=== PATIENT | female | born 1965 | race African-American/Black ===

== ENCOUNTER 2016-09-22 03:36 | Emergency (ER) | payer SELFPAY ==
[~2016-09-22] VITALS: Ht 160 cm; Wt 59.0 kg
[2016-09-22] MEDS ORDERED: SODIUM CHLORIDE 0.9% 1,000 ML IV ONE (04:16)
[2016-09-22] MEDS ORDERED: MORPHINE SULFATE 4 MG/ML CPJ (NOT FOR IM USE) IV STA (04:16)
[2016-09-22] MEDS ORDERED: ONDANSETRON HCL 4MG/2ML VIAL IV STA (04:16)
[2016-09-22 04:35] LABS: BASOPHILS % 0.5 % (0.0-2.0); DIFFERENTIAL COMMENT 0; EOSINOPHILS % 1.8 % (0.0-5.0); HEMATOCRIT. 35.1 % (36.0-48.0); HEMOGLOBIN. 11.2 g/dL (12.0-16.0); LYMPHOCYTES % 30.1 % (20.0-50.0); MEAN CORPUSCULAR HGB CONC 31.9 g/dL (31.0-37.0); MEAN CORPUSCULAR VOLUME 75.1 fL (81.0-99.0); MONOCYTES % 5.5 % (2.0-8.0); NEUTROPHILS % 62.1 % (40.0-76.0); PLATELET 220 x1000/uL (130-400); RED BLOOD CELL COUNT 4.67 mill/uL (4.2-5.4); RED CELL DISTRIBUTION WIDTH 12.6 % (11.6-14.6); WHITE BLOOD COUNT 8.5 x1000/uL (4.5-11.0)
[2016-09-22 04:45] LABS: ALANINE AMINOTRANSFERASE 30 IU/L (13-61); ALBUMIN 2.6 g/dL (3.4-5.0); ANION GAP 14; CALCIUM 8.7 mg/dL (8.5-10.1); CARBON DIOXIDE 27 mEq/L (21-32); CHLORIDE 98 mEq/L (98-107); CREATINE KINASE 216 IU/L (26-192); INDEX ICTERIC 1 (1-4); INDEX LIPEMIC 1 (1-3); UREA NITROGEN BLOOD 9 mg/dL (7-21); eGFR > 60 mL/min (>60)
[2016-09-22 04:46] LABS: INDEX HEMOLYSI 4 (1-3)
[2016-09-22 06:30] VITALS: BP 151/74
== END 2016-09-22 07:00 | disposition home or self-care (01) ==
LOC: ER 03:38
DX: G57.83 Other specified mononeuropathies of bilateral lower limbs (principal); K21.9 Gastro-esophageal reflux disease without esophagitis; I10 Essential (primary) hypertension; E78.00 Pure hypercholesterolemia, unspecified; E11.9 Type 2 diabetes mellitus without complications; M54.9 Dorsalgia, unspecified; Z79.4 Long term (current) use of insulin; Z88.6 Allergy status to analgesic agent
CPT/HCPCS: 36415; 80053; 82550; 85025; 96374; 96375; 99284; J2270; J2405; J7030; Z7610

== ENCOUNTER 2016-10-20 13:29 | Emergency (ER) | payer MEDICAID ==
[~2016-10-20] VITALS: Ht 160 cm; Wt 67.0 kg
[2016-10-20] MEDS ORDERED: SODIUM CHLORIDE 0.9% 1,000 ML IV ONE (14:16)
[2016-10-20 14:31] LABS: BASOPHILS % 0.4 % (0.0-2.0); DIFFERENTIAL COMMENT 0; EOSINOPHILS % 3.5 % (0.0-5.0); HEMATOCRIT. 29.5 % (36.0-48.0); HEMOGLOBIN. 9.5 g/dL (12.0-16.0); LYMPHOCYTES % 29.3 % (20.0-50.0); MEAN CORPUSCULAR HEMOGLOBIN 24.4 pg (28.0-32.0); MEAN CORPUSCULAR VOLUME 76.2 fL (81.0-99.0); MEAN PLATELET VOLUME 7.3 fl (7.4-10.4); MONOCYTES % 8.6 % (2.0-8.0); NEUTROPHILS % 58.2 % (40.0-76.0); PLATELET 324 x1000/uL (130-400); RED BLOOD CELL COUNT 3.87 mill/uL (4.2-5.4); RED CELL DISTRIBUTION WIDTH 13.4 % (11.6-14.6); WHITE BLOOD COUNT 5.9 x1000/uL (4.5-11.0)
[2016-10-20 14:39] LABS: PROTHROMBIN TIME 10.3 sec
[2016-10-20 14:41] LABS: ALBUMIN 2.4 g/dL (3.4-5.0); ANION GAP 14; CALCIUM 8.2 mg/dL (8.5-10.1); CARBON DIOXIDE 27 mEq/L (21-32); CHLORIDE 100 mEq/L (98-107); HCG SCREEN NEGATIVE; INDEX HEMOLYSI 1 (1-3); INDEX ICTERIC 1 (1-4); INDEX LIPEMIC 1 (1-3); UREA NITROGEN BLOOD 33 mg/dL (7-21)
[2016-10-20 14:45] LABS: ALANINE AMINOTRANSFERASE 19 IU/L (13-61); ETHANOL BLOOD < 10 mg/dL; eGFR 52 mL/min (>60)
[2016-10-20 14:48] LABS: CREATINE KINASE 174 IU/L (26-192); NT PRO B-TYPE NATRIURETIC PEP 80 pg/mL (5-125); TROPONIN I < 0.02 ng/mL (0.00-0.04)
[2016-10-20 14:49] LABS: LACTIC ACID 2.7 mmol/L (0.4-2.0)
[2016-10-20] MEDS ORDERED: KETOROLAC 15MG/ML VIAL IV ONE (15:15)
[2016-10-20] MEDS ORDERED: ONDANSETRON HCL 4MG/2ML VIAL IV ONE (15:15)
[2016-10-20 15:30] LABS: CLARITY URINE CLEAR (CLEAR); COLOR URINE YELLOW (YELLOW); GLUCOSE URINE NEGATIVE (NEGATIVE); KETONES URINE TRACE (NEGATIVE); LEUKOCYTE ESTERASE URINE NEGATIVE (NEGATIVE); NITRITE URINE NEGATIVE (NEGATIVE); OCCULT BLOOD URINE NEGATIVE (NEGATIVE); PROTEIN URINE 2+ (NEGATIVE); UROBILINOGEN URINE 0.2 E.U./dL (0.2-1.0)
[2016-10-20 15:44] LABS: *AMPHETAMINES SCREEN URINE NEGATIVE (NEGATIVE); *BARBITURATES SCREEN URINE NEGATIVE (NEGATIVE); *BENZODIAZEPINES SCREEN URINE NEGATIVE (NEGATIVE); *COCAINE SCREEN URINE NEGATIVE (NEGATIVE); CANNABINOID URINE SCREEN NEGATIVE (NEGATIVE); ECSTASY MDMA SCREEN URINE NEGATIVE (NEGATIVE); METHADONE URINE SCREEN NEGATIVE (NEGATIVE); OPIATES URINE SCREEN NEGATIVE (NEGATIVE); PHENCYCLIDINE URINE SCREEN NEGATIVE (NEGATIVE)
[2016-10-20 16:11] LABS: BACTERIA URINE 3+; RBC URINE 0-2 /hpf (0-2); SQUAMOUS EPITHELIAL CELL URINE 2+ /lpf (RARE/1+); WBC URINE 0-2 /hpf (0-2)
[2016-10-20 17:49] VITALS: BP 138/72
== END 2016-10-20 19:16 | disposition home or self-care (01) ==
LOC: ER 13:48
DX: E86.0 Dehydration (principal); R51 Headache; G62.9 Polyneuropathy, unspecified; I10 Essential (primary) hypertension; E11.9 Type 2 diabetes mellitus without complications; R42 Dizziness and giddiness; Z88.5 Allergy status to narcotic agent
CPT/HCPCS: 36415; 71010; 80053; 80305; 81001; 82550; 83605; 83880; 84443; 84484; 84703; 85025; 85610; 93005; 96361; 96374; 96375; 99285; G0482; J1885; J2405; J7030

== ENCOUNTER 2020-02-23 21:44 | Inpatient (IN) | payer MEDICAID, OTHER ==
[~2020-02-23] VITALS: Ht 160 cm; Wt 72.6 kg
[~2020-02-23 21:44] MED LIST: METF-416 PO
[2020-02-23 23:05] LABS: BASOPHILS % 0.5 % (0.0-2.0); EOSINOPHILS % 2.4 % (0.0-5.0); HEMATOCRIT. 32.1 % (36.0-48.0); HEMOGLOBIN. 10.2 g/dL (12.0-16.0); LYMPHOCYTES % 29.4 % (20.0-50.0); MEAN CORPUSCULAR HEMOGLOBIN 24.5 pg (28.0-32.0); MEAN CORPUSCULAR VOLUME 77.1 fL (81.0-99.0); MEAN PLATELET VOLUME 7.1 fl (7.4-10.4); MONOCYTES % 6.1 % (2.0-8.0); NEUTROPHILS % 61.6 % (40.0-76.0); PLATELET 348 x1000/uL (130-400); RED BLOOD CELL COUNT 4.16 mill/uL (4.2-5.4); RED CELL DISTRIBUTION WIDTH 17.5 % (11.6-14.6)
[2020-02-23 23:12] LABS: CHLORIDE 103 mEq/L (98-107)
[2020-02-23] MEDS ORDERED: ALBUTEROL (0.083%) 2.5MG/3ML NEB HHN STA (23:34)
[2020-02-23] MEDS ORDERED: SODIUM BICARBONATE 8.4% 1 MEQ/ML 50ML SYR IV ONE (23:45)
[2020-02-23] MEDS ORDERED: ASPIRIN 81MG TABLET PO ONE (23:45)
[2020-02-23] MEDS ORDERED: FUROSEMIDE 40MG/4ML VIAL IV ONE (23:45)
[2020-02-23] MEDS ORDERED: CALCIUM GLUCONATE 1,000 MG in DEXT 5% WATER 100 ML IV ONE (23:45)
[2020-02-23] MEDS ORDERED: INSULIN REGULAR (HUMULIN R) 300UNITS/3ML IV ONE (23:45)
[2020-02-23] MEDS ORDERED: DEXTROSE 50% WATER 50ML SYRINGE IV ONE (23:45)
[2020-02-24] MEDS ORDERED: AMLODIPINE 10MG TABLET PO ONE (01:00)
[2020-02-24 04:15] VITALS: BP 175/78
[2020-02-24] MEDS ORDERED: GLIP5TAB12 MT (05:27)
[2020-02-24] MEDS ORDERED: HYDR-4133 MT (05:27)
[2020-02-24] MEDS ORDERED: METO-396 MT (05:27)
[2020-02-24] MEDS ORDERED: EPOE200014 SQ (05:27)
[2020-02-24] MEDS ORDERED: DEXTROSE 50% WATER 50ML SYRINGE IV PRN (05:45)
[2020-02-24] MEDS ORDERED: CLONIDINE 0.1MG TABLET PO PRN (05:45)
[2020-02-24] MEDS: HYDRALAZINE HCL 50MG TABLET PO SCH ×2 (06:08→13:00)
[2020-02-24] MEDS ORDERED: SODIUM POLYSTYRENE SULFONATE 15 G/60 ML BOT PO SCH (07:00)
[2020-02-24] MEDS: BLOOD SUGAR DIAGNOSTIC STRIP TEST SCH ×4 (07:23→20:30)
[2020-02-24] MEDS: INSULIN LISPRO 100 UNITS/ML SUBCUT SCH ×4 (07:23→20:31)
[2020-02-24 07:59] VITALS: BP 127/73
[2020-02-24] MEDS: CALCIUM ACETATE 667MG CAPSULE PO SCH ×3 (08:07→17:29)
[2020-02-24] MEDS: METOPROLOL TARTRATE 50MG TABLET PO SCH ×2 (08:07→20:30)
[2020-02-24] MEDS ORDERED: FOLIC ACID/VITAMIN B COMP W-C TABLET PO SCH (09:00)
[2020-02-24] MEDS ORDERED: AMLODIPINE 10MG TABLET PO SCH (09:00)
[2020-02-24 10:06] LABS: BASOPHILS % 0.5 % (0.0-2.0); EOSINOPHILS % 1.8 % (0.0-5.0); HEMATOCRIT. 32.9 % (36.0-48.0); HEMOGLOBIN. 10.2 g/dL (12.0-16.0); MEAN CORPUSCULAR HEMOGLOBIN 24.1 pg (28.0-32.0); MEAN CORPUSCULAR VOLUME 77.4 fL (81.0-99.0); MEAN PLATELET VOLUME 7.4 fl (7.4-10.4); MONOCYTES % 6.8 % (2.0-8.0); NEUTROPHILS % 58.9 % (40.0-76.0); PLATELET 339 x1000/uL (130-400); RED BLOOD CELL COUNT 4.24 mill/uL (4.2-5.4); RED CELL DISTRIBUTION WIDTH 17.5 % (11.6-14.6)
[2020-02-24 10:13] LABS: PHOSPHORUS 4.6 mg/dL (2.5-4.9)
[2020-02-24 11:43] VITALS: BP 139/57
[2020-02-24] MEDS ORDERED: FUROSEMIDE 40MG/4ML VIAL IVP NR (12:36)
[2020-02-24] MEDS ORDERED: HYDR-4134 MT (13:04)
[2020-02-24] MEDS ORDERED: AMLO10TA80 MT (13:05)
[2020-02-24] MEDS ORDERED: METO-385 MT (13:06)
[2020-02-24 15:45] VITALS: BP 172/68
[2020-02-24] MEDS ORDERED: FUROSEMIDE 40MG/4ML VIAL IVP SCH (17:00)
[2020-02-24 19:54] VITALS: BP 169/73
[2020-02-24 20:00] VITALS: BP 168/83
[2020-02-24] MEDS ORDERED: ATORVASTATIN CALCIUM 20MG TABLET PO SCH (21:00)
[2020-02-24] MEDS ORDERED: HYDRALAZINE HCL 50MG TABLET PO SCH (22:00)
== END 2020-02-24 21:02 | disposition short-term general hospital (02) | DRG 291 ==
LOC: ER 21:44 → 6WST 02-24 00:11 → ENRESERV 02-24 01:43
PROVIDERS: ADMIT Internal Medicine; ATTEND Internal Medicine
DX: I13.2 Hypertensive heart and chronic kidney disease with heart failure and with stage 5 chronic kidney disease, or end stage renal disease (principal); N18.6 End stage renal disease; I50.31 Acute diastolic (congestive) heart failure; E44.0 Moderate protein-calorie malnutrition; E87.1 Hypo-osmolality and hyponatremia; N17.9 Acute kidney failure, unspecified; E78.5 Hyperlipidemia, unspecified; E87.5 Hyperkalemia; E78.00 Pure hypercholesterolemia, unspecified; Z79.899 Other long term (current) drug therapy; Z88.5 Allergy status to narcotic agent; Z68.28 Body mass index [BMI] 28.0-28.9, adult; E11.21 Type 2 diabetes mellitus with diabetic nephropathy; D63.8 Anemia in other chronic diseases classified elsewhere
CPT/HCPCS: 36415; 71045; 76770; 80048; 80053; 80061; 82962; 83036; 83880; 84100; 84484; 85025; 93005; 93306; 94640; 96374; 99291; J0610; J1815; J1940; J3490; J7060

== ENCOUNTER 2024-02-01 16:04 | Emergency (ER) | payer MEDICARE, OTHER ==
[~2024-02-01] VITALS: Ht 165.1 cm; Wt 73.0 kg
[~2024-02-01 16:04] MED LIST changes: +AMLO10TA80 MT; +EPOE200014 SQ; +GLIP5TAB22 MT; +HYDR-2988 MT; +HYDR25TA78 MT; -METF-416 PO; +METO-385 MT; +METO-396 MT
[2024-02-01 16:07] VITALS: O2SAT 94
[2024-02-01 19:34] LABS: BASOPHILS % 0.7 % (0.0-2.0); DIFFERENTIAL COMMENT 0; EOSINOPHILS % 4.9 % (0.0-5.0); HEMATOCRIT. 36.4 % (36.0-48.0); HEMOGLOBIN. 10.8 g/dL (12.0-16.0); LYMPHOCYTES % 31.2 % (20.0-50.0); MEAN CORPUSCULAR HEMOGLOBIN 24.6 pg (28.0-32.0); MEAN CORPUSCULAR HGB CONC 29.8 g/dL (31.0-37.0); MEAN CORPUSCULAR VOLUME 82.5 fL (81.0-99.0); MEAN PLATELET VOLUME 7.9 fl (7.4-10.4); MONOCYTES % 8.2 % (2.0-8.0); PLATELET 254 x1000/uL (130-400); RED BLOOD CELL COUNT 4.41 mill/uL (4.2-5.4); RED CELL DISTRIBUTION WIDTH 18.4 % (11.6-14.6); WHITE BLOOD COUNT 4.6 x1000/uL (4.5-11.0)
[2024-02-01 19:35] LABS: POTASSIUM 4.3 mEq/L (3.5-5.1)
[2024-02-01 19:37] LABS: CALCIUM 8.7 mg/dL (8.7-10.4)
[2024-02-01 19:44] LABS: CREATININE 5.2 mg/dL (0.6-1.0)
[2024-02-01 21:50] VITALS: BP 121/69; PULSE 82; RESP 14; TEMP 36.72516; O2SAT 98
== END 2024-02-01 22:35 | disposition short-term general hospital (02) ==
LOC: ER 16:04
DX: T82.838A Hemorrhage due to vascular prosthetic devices, implants and grafts, initial encounter (principal); I12.0 Hypertensive chronic kidney disease with stage 5 chronic kidney disease or end stage renal disease; E11.22 Type 2 diabetes mellitus with diabetic chronic kidney disease; N18.6 End stage renal disease; Z88.5 Allergy status to narcotic agent; Z79.899 Other long term (current) drug therapy
CPT/HCPCS: 36415; 80048; 85025; 86850; 86900; 99283